=== PATIENT | male | born 1960 | race Caucasian/White ===

== ENCOUNTER → 2017-05-13 | Outpatient (CLI) | payer BC ==
--- NOTE | 2017-05-13 10:59 | DIAGNOSTIC IMAGING REPORT ---
CT OF THE ABDOMEN AND PELVIS WITHOUT CONTRAST CLINICAL HISTORY: Acute left lower quadrant abdominal pain. Fever. COMPARISON STUDY: No previous studies for comparison. TECHNIQUE: Axial images of the abdomen and pelvis were obtained without IV contrast. Images were reviewed in the axial, sagittal, and coronal planes. A dose lowering technique was utilized adhering to the principles of ALARA. FINDINGS: No pneumatosis, free air or portal venous gas is present. There is geographic fatty infiltration of the right hepatic lobe. There is no biliary or pancreatic ductal dilatation. Note is made of moderate atrophy of the pancreatic tail and a portion of the pancreatic body. No associated mass is identified on this unenhanced exam. The spleen, adrenal glands and left kidney are unremarkable. There are several punctate right renal calculi. No hydronephrosis or ureteral calculi are present. A few borderline enlarged upper abdominal lymph nodes are present. There is mild left colon diverticulosis. There is mild infiltration adjacent to the anterior aspect of the distal descending colon. There is a apparent tubular fat-containing structure adjacent to the infiltration. However, the findings favor a mild acute diverticulitis. There is no free air or abscess. No suspicious skeletal lesions are present. The appendix is normal. IMPRESSION: 1. Findings suggestive of mild acute diverticulitis of the distal descending colon. No free air or abscess. Epiploic appendagitis could appear similar but is considered less likely. 2. Isolated atrophy of the pancreatic tail. No pancreatic ductal dilatation. No mass identified on this unenhanced exam. A follow-up nonemergent MRI of the pancreas is recommended to exclude an occult lesion. 3. Punctate right renal calculi. 4. Geographic fatty infiltration of the right hepatic lobe. Electronically signed by: Darshan Chaves M.D. 05/13/2017 10:58 AM Dictated Date/Time: 05/13/2017 10:44 AM
== END | disposition home or self-care (01) ==
LOC: C.CTS 10:14
PROVIDERS: ATTEND Student in an Organized Health Care Education/Training Program
DX: R10.32 Left lower quadrant pain (principal)